=== PATIENT | female | born 1950 | race Two or more races ===

== ENCOUNTER 2020-10-16 08:51 | Emergency (ER) | payer OTHER ==
[~2020-10-16] VITALS: Ht 172.7 cm; Wt 97.5 kg
[~2020-10-16 08:51] MED LIST: AVAPRO150 MG
[2020-10-16] MEDS ORDERED: MOTION SICKNESS25 M1 PO (13:35)
[2020-10-16] MEDS ORDERED: METOCLOPRAMIDE10 MG PO (13:35)
== END 2020-10-16 14:33 | disposition home or self-care (01) ==
LOC: ER 08:51
DX: H81.13 Benign paroxysmal vertigo, bilateral (principal); Z03.818 Encounter for observation for suspected exposure to other biological agents ruled out

== ENCOUNTER 2021-11-02 19:40 | Emergency (ER) | payer OTHER ==
[~2021-11-02] VITALS: Ht 172.7 cm; Wt 95.3 kg
[~2021-11-02 19:40] MED LIST changes: +METOCLOPRAMIDE10 MG PO; +MOTION SICKNESS25 M1 PO
[2021-11-02] MEDS ORDERED: MUPIROCIN1 G1 TOP (21:31)
== END 2021-11-02 21:40 ==
LOC: ER 19:40
DX: S91.021A Laceration with foreign body, right ankle, initial encounter (principal); W25.XXXA Contact with sharp glass, initial encounter; Y92.018 Other place in single-family (private) house as the place of occurrence of the external cause; Z88.0 Allergy status to penicillin; Z88.6 Allergy status to analgesic agent

== ENCOUNTER 2022-11-01 20:58 | Emergency (ER) | payer OTHER ==
[~2022-11-01] VITALS: Ht 152.4 cm; Wt 95.3 kg
[~2022-11-01 20:58] MED LIST changes: +MUPIROCIN1 G1 TOP
== END 2022-11-01 23:45 | disposition home or self-care (01) ==
LOC: ER 20:58
DX: K21.9 Gastro-esophageal reflux disease without esophagitis (principal); Z88.6 Allergy status to analgesic agent; Z88.0 Allergy status to penicillin

== ENCOUNTER → 2023-07-13 | Emergency (ER) | payer OTHER ==
[~2023-07-13] VITALS: Ht 172.7 cm; Wt 95.3 kg
[2023-07-13 17:41] LABS: HEMATOCRIT 43.6 % (36.0-45.00); HEMOGLOBIN 14.5 g/dL (12.0-15.00); MEAN CELL VOLUME 92.4 fL (80.00-100.00); MEAN CORPUSCULAR HEMOGLOBIN 30.7 pg (27.00-32.0); MEAN CORPUSCULAR HGB CONC 33.3 g/dl (32.0-36.0); PLATELET COUNT 140 K/uL (150-450); RED BLOOD COUNT 4.72 M/uL (4.00-6.00); RED CELL DISTRIBUTION WIDTH 13.4 % (11.5-14.5)
== END | disposition home or self-care (01) ==
LOC: ER 12:27
PROVIDERS: General Practice
DX: J32.9 Chronic sinusitis, unspecified (principal); Z88.6 Allergy status to analgesic agent; Z88.0 Allergy status to penicillin; Z20.822 Contact with and (suspected) exposure to COVID-19; I10 Essential (primary) hypertension

== ENCOUNTER 2023-10-10 13:43 | Outpatient (CLI) | payer OTHER | END 2023-10-10 13:50 | disposition home or self-care (01) | LOC: RAD 13:43 | PROVIDERS: ATTEND Internal Medicine Cardiovascular Disease | DX: I10 Essential (primary) hypertension (principal); Z88.0 Allergy status to penicillin; Z88.6 Allergy status to analgesic agent ==

== ENCOUNTER 2023-10-12 07:08 | Emergency (ER) | payer OTHER ==
[~2023-10-12] VITALS: Ht 172.7 cm; Wt 95.3 kg
[2023-10-12] MEDS ORDERED: IRBESARTAN300 MG PO (07:53)
[2023-10-12 09:32] LABS: HEMOGLOBIN 14.3 g/dL (12.0-15.00); MEAN CELL VOLUME 89.8 fL (80.00-100.00); MEAN CORPUSCULAR HGB CONC 33.4 g/dl (32.0-36.0); PLATELET COUNT 133 K/uL (150-450); RED BLOOD COUNT 4.79 M/uL (4.00-6.00); RED CELL DISTRIBUTION WIDTH 13.4 % (11.5-14.5)
[2023-10-12 10:08] LABS: ALBUMIN 3.6 gm/dL (3.4-5.0); BILIRUBIN TOTAL 0.85 mg/dL (0.3-1.2); CALCIUM 9.6 mg/dL (8.5-10.1); CREATININE SERUM 1.02 mg/dL (0.55-1.02); GFR 52.97; GLOBULINA 4.7 G/DL (2.4-3.5); POTASSIUM 3.51 mEq/L (3.5-5.1); TOTAL PROTEIN 8.3 gm/dL (6.4-8.2)
[2023-10-12] MEDS ORDERED: MUCINEX DM ER1 EAC1 PO (12:32)
[2023-10-12] MEDS ORDERED: BENZONATATE200 M1 PO (12:32)
[2023-10-12] MEDS ORDERED: FLONASE ALLERG9.9 ML NASAL (12:32)
== END 2023-10-12 13:50 ==
LOC: ER 07:08
PROVIDERS: General Practice
DX: R09.89 Other specified symptoms and signs involving the circulatory and respiratory systems (principal); J06.9 Acute upper respiratory infection, unspecified; R53.81 Other malaise; I10 Essential (primary) hypertension; Z88.0 Allergy status to penicillin; Z88.6 Allergy status to analgesic agent

== ENCOUNTER 2025-01-28 14:12 | Emergency (ER) | payer OTHER ==
[~2025-01-28] VITALS: Ht 172.7 cm; Wt 96.2 kg
[~2025-01-28 14:12] MED LIST changes: +BENZONATATE200 M1 PO; +FLONASE ALLERG9.9 ML NASAL; +IRBESARTAN300 MG PO; +MUCINEX DM ER1 EAC1 PO
[2025-01-28] MEDS ORDERED: ACETAMINOPHEN 500 MG GEL..CAP PO ONE ×2 (16:00→16:12)
[2025-01-28] MEDS ORDERED: CETIRIZINE HCL 5 MG/5 ML ML PO ONE (16:00)
[2025-01-28] MEDS ORDERED: ENALAPRILAT DIHYDRATE 1.25 MG/ML VIAL IV ONE ×2 (16:00→16:13)
[2025-01-28] MEDS ORDERED: CETIRIZINE HCL 5MG/5ML BLIST.PACK PO ONE (16:13)
[2025-01-28 16:38] LABS: BASO % 0.5 % (0.1-1.2); EOS # 0.06 (0.04-0.54); EOS % 0.6 % (0.7-7.0); HEMATOCRIT 44.2 % (34.1-44.9); HEMOGLOBIN 14.6 g/dL (11.2-15.7); LYMPH # 1.93 (1.18-3.74); LYMPH % 18.6 % (19.3-53.1); MEAN CORPUSCULAR HEMOGLOBIN 29.8 pg (25.6-32.2); MONO # 0.59 (0.24-0.82); MONO % 5.7 % (4.7-12.5); NEUT # 7.72 (1.56-6.13); NEUT % 74.2 % (34.0-71.1); RED CELL DISTRIBUTION WIDTH 12.8 % (11.6-14.4)
[2025-01-28 16:41] LABS: PLATELET COUNT 118 K/uL (163-369)
[2025-01-28 16:54] LABS: INFLUENZA A AG NEGATIVE (NEGATIVE)
[2025-01-28 17:13] LABS: COVID-19 AG NEGATIVE (NEGATIVE)
[2025-01-28 17:21] LABS: ALBUMIN 3.7 gm/dL (3.4-5.0); BILIRUBIN TOTAL 0.59 mg/dL (0.3-1.2); CALCIUM 9.8 mg/dL (8.5-10.1); CREATININE SERUM 1.01 mg/dL (0.55-1.02); GFR 53.43; GLOBULINA 4.7 G/DL (2.4-3.5); POTASSIUM 3.76 mEq/L (3.5-5.1); TOTAL PROTEIN 8.4 gm/dL (6.4-8.2)
[2025-01-28] MEDS ORDERED: ZYRTEC10 MG PO (20:11)
== END 2025-01-28 20:33 ==
LOC: ER 14:12
PROVIDERS: General Practice
DX: I10 Essential (primary) hypertension (principal); R09.81 Nasal congestion; Z88.6 Allergy status to analgesic agent; Z88.0 Allergy status to penicillin; Z20.822 Contact with and (suspected) exposure to COVID-19; R51.9 Headache, unspecified

== ENCOUNTER 2025-02-23 07:37 | Outpatient (CLI) | payer OTHER ==
[~2025-02-23 07:37] MED LIST changes: +ZYRTEC10 MG PO
== END 2025-02-23 07:48 | disposition home or self-care (01) ==
LOC: MAMO-SONO 07:37
PROVIDERS: ATTEND Internal Medicine Endocrinology, Diabetes & Metabolism
DX: R31.0 Gross hematuria (principal); I10 Essential (primary) hypertension; R73.03 Prediabetes; N18.30 Chronic kidney disease, stage 3 unspecified; N64.0 Fissure and fistula of nipple; I11.0 Hypertensive heart disease with heart failure